=== PATIENT | female | born 1965 | race Caucasian/White ===

== ENCOUNTER 2017-01-05 12:47 | Emergency (ER) | payer OTHER ==
[~2017-01-05] VITALS: Wt 90.7 kg
[2017-01-05] MEDS ORDERED: MONTELUKAST SOD10 MG PO (13:01)
[2017-01-05] MEDS ORDERED: LEVOTHYROXIN0.075 M1 PO (13:01)
[2017-01-05] MEDS ORDERED: METHOCARBAMOL750 M1 PO (13:01)
[2017-01-05] MEDS ORDERED: DULOXETINE HCL30 MG PO (13:01)
[2017-01-05] MEDS ORDERED: NEURONTIN300 MG PO (13:01)
[2017-01-05] MEDS ORDERED: AMITRIPTYLINE10 MG PO (13:04)
[2017-01-05] MEDS ORDERED: MEDROL DOSEPAK4 MG PO (13:47)
== END 2017-01-05 13:55 | disposition home or self-care (01) ==
LOC: ED 12:47
DX: G89.29 Other chronic pain (principal); M54.2 Cervicalgia; M54.9 Dorsalgia, unspecified

== ENCOUNTER → 2017-01-05 | Outpatient (CLI) | payer OTHER ==
[~2017-01-05] MED LIST: AMITRIPTYLINE10 MG PO; DULOXETINE HCL30 MG PO; LEVOTHYROXIN0.075 M1 PO; MEDROL DOSEPAK4 MG PO; METHOCARBAMOL750 M1 PO; MONTELUKAST SOD10 MG PO; NEURONTIN300 MG PO
== END | disposition home or self-care (01) ==
LOC: ORTHO 10:31
DX: M25.561 Pain in right knee (principal); M25.562 Pain in left knee; Z91.81 History of falling; M17.0 Bilateral primary osteoarthritis of knee

== ENCOUNTER → 2017-08-29 | Outpatient (CLI) | payer OTHER | END | disposition home or self-care (01) | LOC: ORTHO 00:55 | DX: M17.12 Unilateral primary osteoarthritis, left knee (principal) ==

== ENCOUNTER → 2018-01-18 | Outpatient (CLI) | payer OTHER | END | disposition home or self-care (01) | LOC: ORTHO 01:23 | DX: M19.032 Primary osteoarthritis, left wrist (principal) ==

== ENCOUNTER → 2025-02-04 | Outpatient (CLI) | payer BC | END | disposition home or self-care (01) | LOC: ORTHO 10:12 | PROVIDERS: ATTEND Orthopaedic Surgery | DX: M17.0 Bilateral primary osteoarthritis of knee (principal) ==

== ENCOUNTER → 2025-02-15 | Outpatient (CLI) | payer BC | END | disposition home or self-care (01) | LOC: RAD 12:34 | PROVIDERS: ATTEND Orthopaedic Surgery | DX: M17.0 Bilateral primary osteoarthritis of knee (principal); M25.462 Effusion, left knee; M25.461 Effusion, right knee; M81.0 Age-related osteoporosis without current pathological fracture; Z13.820 Encounter for screening for osteoporosis ==

== ENCOUNTER → 2025-05-01 | Outpatient (CLI) | payer BC ==
[~2025-05-01] MED LIST changes: +ADDERALL 20 MG20 MG PO; +ASPIRIN ADULT L81 M2 PO; +CELECOXIB200 M1 PO; +JARDIANCE25 MG PO; +LOSARTAN POTASS50 M1 PO; +METAXALONE800 M2 PO; +OMEPRAZOLE MAGN20 M1 PO; +OXYCODONE-ACET1 EAC3 PO; +REXULTI4 MG PO; +TRULICITY4.5 MG/0.5 SQ; +VITAMIN D350 MC3 PO; +XANAX1 MG PO
== END | disposition home or self-care (01) ==
LOC: ORTHO 03:37
PROVIDERS: ATTEND Orthopaedic Surgery
DX: Z47.1 Aftercare following joint replacement surgery (principal)

== ENCOUNTER → 2025-05-29 | Outpatient (CLI) | payer BC | END | disposition home or self-care (01) | LOC: ORTHO 02:11 | PROVIDERS: ATTEND Orthopaedic Surgery | DX: Z47.1 Aftercare following joint replacement surgery (principal) ==

== ENCOUNTER 2025-07-30 03:38 | Inpatient (IN) | payer BC ==
[2025-07-29 11:05] LABS: BASO # 0.0 10*3/uL (0.0-0.1); BASO % 0.3 % (0.0-1.0); EOS # 0.7 10*3/uL (0.0-0.4); EOS % 7.8 % (1.0-4.0); MEAN CELL VOLUME 81.0 fl (81.0-99.0); MEAN CORPUSCULAR HGB 25.3 pg (27.0-31.0); MEAN PLATELET VOLUME 10.0 fl (9.6-12.3); MONO # 0.5 10*3/uL (0.1-1.0); MONO % 6.2 % (3.0-9.0); NEUT # 5.2 10*3/uL (2.3-7.9); NEUT % 58.9 % (47.0-73.0); NUCLEATED RED BLOOD CELL 0.0 % (0.0-0.0); NUCLEATED RED BLOOD CELL 0.0 10*3/uL (0.0-0.0); PLATELET COUNT AUTOMATED 394 10*3/uL (130-400); RED CELL DISTRI WIDTH 17.8 % (0-14.5)
[2025-07-29 11:16] LABS: ACT PARTIAL THROMBO TIME 26.3 SECONDS (20.0-32.1)
[2025-07-29 11:17] LABS: BILIRUBIN Negative (Negative); BLOOD Negative (Negative); CLARITY Clear (Clear); COLOR Yellow (Yellow); KETONE Negative (Negative); LEUKO ESTERASE Negative (Negative); NITRITE Negative (Negative); PH 5.5 (4.5-8.0); SPECIFIC GRAVITY 1.020 (1.001-1.030); UROBILINOGEN 0.2 E.U./dl (0.0-1.0)
[2025-07-29 11:50] LABS: WBC 0-2 wbc/hpf (0-5)
[2025-07-29 11:51] LABS: BACTERIA TRACE; BUN 14 mg/dl (9-23); SGPT/ALT 18 U/L (5-49); YEAST TRACE
[2025-07-30] VITALS (9 sets, daily range): BP systolic 124–154; BP diastolic 71–94
[~2025-07-30] VITALS: Ht 157.5 cm; Wt 70.3 kg
[2025-07-30] MEDS ORDERED: TRANEXAMIC ACID IN NACL,ISO-OS 100 ML IV ONE (07:23)
[2025-07-30] MEDS ORDERED: ceFAZolin sodium/sodium chlor 20 ML IV ONE (07:23)
[2025-07-30] MEDS ORDERED: Ondansetron Hydrochloride 4 MG/2 ML VIAL IV PRN (08:10)
[2025-07-30] MEDS ORDERED: Acetaminophen/Oxycodone 5 MG/325 MG TABLET PO PRN (08:15)
[2025-07-30] MEDS ORDERED: Lactated Ringer's Solution 1,000 ML IV ONE ×2 (08:44→11:03)
[2025-07-30] MEDS ORDERED: ACETAMINOPHEN 100 ML IV ONE (08:44)
[2025-07-30] MEDS ORDERED: Ropivacaine Hydrochloride 5 MG/ML 20 ML AMP IJ ONE (08:44)
[2025-07-30] MEDS ORDERED: Cholecalciferol 2,000 UNIT TABLET (50 MCG) PO SCH (10:00)
[2025-07-30] MEDS ORDERED: DOCUSATE SODIUM 100 MG CAP PO SCH (10:00)
[2025-07-30] MEDS ORDERED: Bupivacaine Hydrochloride/Ep2 30 ML VIAL ONE (10:57)
[2025-07-30] MEDS ORDERED: fentaNYL CITRATE/PF 50 MCG/ML SYRINGE IV PRN (11:25)
[2025-07-30] MEDS ORDERED: ACETAMINOPHEN 325 MG TAB PO PRN (13:15)
[2025-07-30] MEDS ORDERED: DEXTROSE 50% 25 GM/50 ML VIAL IV PRN (13:15)
[2025-07-30] MEDS ORDERED: Ondansetron Hydrochloride 4 MG/2 ML VIAL IV ONE (14:44)
[2025-07-30] MEDS ORDERED: Midazolam Hydrochloride 2 MG/2 ML VIAL IV ONE (14:44)
[2025-07-30] MEDS ORDERED: PROPOFOL 200 MG/20 ML VIAL IV ONE (14:44)
[2025-07-30] MEDS ORDERED: MAGNESIUM SULFATE 1 GM/2 ML VIAL IV ONE (14:44)
[2025-07-30] MEDS ORDERED: Lidocaine Hydrochloride 5 ML VIAL IV ONE (14:44)
[2025-07-30] MEDS ORDERED: ceFAZolin sodium 1 GM in SYRINGE INFUSION 10 ML IV SCH (16:00)
[2025-07-30] MEDS ORDERED: INSULIN LISPRO 1 UNIT/0.01 ML SQ SCH (16:30)
[2025-07-31] VITALS: BP 129/78
[2025-07-31] MEDS ORDERED: HYDROmorphONE Hydrochloride 0.5 MG/0.5 ML SYRINGE IV PRN (04:15)
[2025-07-31 06:36] LABS: BASO # 0.0 10*3/uL (0.0-0.1); BASO % 0.2 % (0.0-1.0); EOS # 0.5 10*3/uL (0.0-0.4); EOS % 4.7 % (1.0-4.0); MEAN CELL VOLUME 81.8 fl (81.0-99.0); MEAN CORPUSCULAR HGB 24.9 pg (27.0-31.0); MEAN PLATELET VOLUME 10.9 fl (9.6-12.3); MONO # 0.9 10*3/uL (0.1-1.0); MONO % 9.0 % (3.0-9.0); NEUT # 7.0 10*3/uL (2.3-7.9); NEUT % 70.4 % (47.0-73.0); NUCLEATED RED BLOOD CELL 0.0 % (0.0-0.0); NUCLEATED RED BLOOD CELL 0.0 10*3/uL (0.0-0.0); PLATELET COUNT AUTOMATED 321 10*3/uL (130-400); RED CELL DISTRI WIDTH 17.6 % (0-14.5)
[2025-07-31 07:03] LABS: BUN 12 mg/dl (9-23)
[2025-07-31 08:00] VITALS: BP 133/76
[2025-07-31] MEDS ORDERED: OMEPRAZOLE 20 MG CAP PO SCH (10:00)
[2025-07-31 12:00] VITALS: BP 132/67
[2025-07-31] MEDS ORDERED: SYNTHROID,LEV112 MCG PO (13:07)
[2025-07-31] MEDS ORDERED: DULOXETINE HCL60 MG PO (13:07)
[2025-07-31] MEDS ORDERED: ADDERALL 30 MG30 MG PO (13:08)
[2025-07-31] MEDS ORDERED: REXULTI2 MG PO (13:08)
[2025-07-31 15:51] VITALS: BP 144/77
[2025-07-31] MEDS ORDERED: ASPIRIN ENTERIC COATED 81 MG TAB PO SCH (18:00)
[2025-07-31 20:00] VITALS: BP 129/69
[2025-08-01] VITALS: BP 135/75
[2025-08-01 06:28] LABS: BASO # 0.0 10*3/uL (0.0-0.1); BASO % 0.2 % (0.0-1.0); EOS # 0.4 10*3/uL (0.0-0.4); EOS % 4.3 % (1.0-4.0); MEAN CELL VOLUME 81.1 fl (81.0-99.0); MEAN CORPUSCULAR HGB 25.3 pg (27.0-31.0); MEAN PLATELET VOLUME 10.7 fl (9.6-12.3); MONO # 0.9 10*3/uL (0.1-1.0); MONO % 10.0 % (3.0-9.0); NEUT # 5.4 10*3/uL (2.3-7.9); NEUT % 62.8 % (47.0-73.0); NUCLEATED RED BLOOD CELL 0.0 % (0.0-0.0); NUCLEATED RED BLOOD CELL 0.0 10*3/uL (0.0-0.0); PLATELET COUNT AUTOMATED 284 10*3/uL (130-400); RED CELL DISTRI WIDTH 17.2 % (0-14.5)
[2025-08-01 08:00] VITALS: BP 107/63
[2025-08-01] MEDS ORDERED: BREXPIPRAZOLE 2 MG TABLET PO SCH (10:00)
[2025-08-01] MEDS ORDERED: EMPAGLIFLOZIN 25 MG TABLET PO SCH (10:00)
[2025-08-01 12:00] VITALS: BP 119/63
[2025-08-01] MEDS ORDERED: GABAPENTIN 300 MG CAP PO SCH (14:00)
[2025-08-01 16:00] VITALS: BP 116/57
[2025-08-01 20:00] VITALS: BP 106/67
[2025-08-02] VITALS: BP 94/46
[2025-08-02 06:44] LABS: BASO # 0.0 10*3/uL (0.0-0.1); BASO % 0.2 % (0.0-1.0); EOS # 0.5 10*3/uL (0.0-0.4); EOS % 4.4 % (1.0-4.0); MEAN CELL VOLUME 82.1 fl (81.0-99.0); MEAN CORPUSCULAR HGB 25.2 pg (27.0-31.0); MEAN PLATELET VOLUME 10.8 fl (9.6-12.3); MONO # 0.7 10*3/uL (0.1-1.0); MONO % 6.1 % (3.0-9.0); NEUT # 7.4 10*3/uL (2.3-7.9); NEUT % 69.0 % (47.0-73.0); NUCLEATED RED BLOOD CELL 0.0 % (0.0-0.0); NUCLEATED RED BLOOD CELL 0.0 10*3/uL (0.0-0.0); PLATELET COUNT AUTOMATED 309 10*3/uL (130-400); RED CELL DISTRI WIDTH 17.4 % (0-14.5)
[2025-08-02 08:00] VITALS: BP 112/68
[2025-08-02] MEDS ORDERED: OXYCODONE-ACET1 EAC3 PO ×2 (08:21)
[2025-08-02] MEDS ORDERED: VITAMIN D350 MCG PO (08:21)
[2025-08-02] MEDS ORDERED: DOCUSATE SOD100 MG PO ×2 (08:21→08:31)
== END 2025-08-02 10:42 | disposition home or self-care (01) | DRG 470 ==
LOC: SDC 03:38 → 4E 07:30 → SDC 08:00 → 4E 15:02 → 5E 07-31 16:46
PROVIDERS: Orthopaedic Surgery; ADMIT Internal Medicine; ATTEND Internal Medicine
PROC: 0SRD0JZ Replacement of Left Knee Joint with Synthetic Substitute, Open Approach (ICD-10-PCS; principal; 2025-07-30)
DX: M17.12 Unilateral primary osteoarthritis, left knee (principal); F17.213 Nicotine dependence, cigarettes, with withdrawal; G89.29 Other chronic pain; G62.9 Polyneuropathy, unspecified; F41.9 Anxiety disorder, unspecified; I10 Essential (primary) hypertension; E03.9 Hypothyroidism, unspecified; E11.9 Type 2 diabetes mellitus without complications; F31.9 Bipolar disorder, unspecified; F17.210 Nicotine dependence, cigarettes, uncomplicated; D55.9 Anemia due to enzyme disorder, unspecified; F90.9 Attention-deficit hyperactivity disorder, unspecified type; Z98.890 Other specified postprocedural states; G89.18 Other acute postprocedural pain

== ENCOUNTER 2025-08-09 11:30 | Emergency (ER) | payer BC ==
[~2025-08-09] VITALS: Ht 157.4 cm; Wt 68.0 kg
[~2025-08-09 11:30] MED LIST changes: +ADDERALL 30 MG30 MG PO; +DOCUSATE SOD100 MG PO; +DULOXETINE HCL60 MG PO; +REXULTI2 MG PO; +SYNTHROID,LEV112 MCG PO; +VITAMIN D350 MCG PO
[2025-08-09] MEDS ORDERED: Ondansetron Hydrochloride 4 MG/2 ML VIAL IV ONE (12:00)
[2025-08-09 12:24] LABS: BASO # 0.0 10*3/uL (0.0-0.1); BASO % 0.2 % (0.0-1.0); EOS # 0.5 10*3/uL (0.0-0.4); EOS % 6.0 % (1.0-4.0); MEAN CELL VOLUME 80.9 fl (81.0-99.0); MEAN CORPUSCULAR HGB 24.9 pg (27.0-31.0); MEAN PLATELET VOLUME 9.8 fl (9.6-12.3); MONO # 0.5 10*3/uL (0.1-1.0); MONO % 6.1 % (3.0-9.0); NEUT # 5.5 10*3/uL (2.3-7.9); NEUT % 62.7 % (47.0-73.0); NUCLEATED RED BLOOD CELL 0.0 % (0.0-0.0); NUCLEATED RED BLOOD CELL 0.0 10*3/uL (0.0-0.0); PLATELET COUNT AUTOMATED 429 10*3/uL (130-400); RED CELL DISTRI WIDTH 16.9 % (0-14.5)
[2025-08-09 12:34] LABS: ACT PARTIAL THROMBO TIME 26.2 SECONDS (20.0-32.1)
[2025-08-09 12:42] LABS: BUN 9 mg/dl (9-23)
[2025-08-09] MEDS ORDERED: Ondansetron4 MG PO (13:34)
[2025-08-09] MEDS ORDERED: PERCOCET 5-3251 EACH PO (13:34)
== END 2025-08-09 13:39 | disposition home or self-care (01) ==
LOC: ED 11:30
PROVIDERS: Emergency Medicine
DX: R60.0 Localized edema (principal); I10 Essential (primary) hypertension; E11.9 Type 2 diabetes mellitus without complications; E03.9 Hypothyroidism, unspecified; F17.210 Nicotine dependence, cigarettes, uncomplicated; Z98.890 Other specified postprocedural states; Z88.5 Allergy status to narcotic agent; Z96.651 Presence of right artificial knee joint; Z87.19 Personal history of other diseases of the digestive system

== ENCOUNTER → 2025-08-12 | Outpatient (CLI) | payer BC ==
[~2025-08-12] MED LIST changes: +Ondansetron4 MG PO; +PERCOCET 5-3251 EACH PO
== END | disposition home or self-care (01) ==
LOC: ORTHO 03:09
PROVIDERS: ATTEND Orthopaedic Surgery
DX: Z47.1 Aftercare following joint replacement surgery (principal)

== ENCOUNTER → 2025-09-13 | Outpatient (CLI) | payer BC | END | disposition home or self-care (01) | LOC: ORTHO 09-09 04:57 | PROVIDERS: ATTEND Orthopaedic Surgery | DX: Z47.1 Aftercare following joint replacement surgery (principal); M25.462 Effusion, left knee; Z96.652 Presence of left artificial knee joint ==